=== PATIENT | male | born 1975 | race Caucasian/White ===

== ENCOUNTER → 2020-06-19 | Outpatient (CLI) | payer BC ==
--- NOTE | 2020-06-19 10:32 | XR ---
EXAMINATION TYPE: XR thoracic spine complete, 3 views DATE OF EXAM: 06/19/2020 Comparison: None Clinical History: 44-year-old male [id number],[id number] THOR PAIN, LBP Findings: Mild anterior wedging of approximately 7 minutes thoracic vertebral bodies. Accentuated cervical lord osis and upper thoracic kyphosis. There is leftward truncal shift that could be positional or due to muscle spasm. 12 rib bearing thoracic vertebral bodies. Bridging anterior endplate spondylosis midtho racic spine. Impression: Mild anterior wedging of approximately 7 midthoracic vertebral bodies. These are age indeterminate co mpression deformities in further clinical correlation is recommended. Accentuated upper thoracic kyph osis and accentuated cervical lordosis.
--- NOTE | 2020-06-19 10:33 | XR ---
EXAMINATION TYPE: XR lumbosacral spine min 4V DATE OF EXAM: 06/19/2020 Comparison: None Clinical History: 44-year-old male [id number],[id number] THOR PAIN, LBP Findings: Facet arthropathy mid to lower lumbar spine. Superior endplate deformity of L5. Trace grade 1 retroli sthesis L3-L4. Remaining alignment is maintained. There is superior endplate deformity with anterior wedging of T12 vertebral body. No pars interarticularis defect is identified. Impression: 1. Superior endplate deformity of T12 and L5 are age indeterminate compression fractures. This result s in mild anterior wedging at T12. Further clinical correlation recommended. 2. Some facet arthropathy lower lumbar spine. Degenerative grade 1 retrolisthesis at L3-L4.
== END | disposition home or self-care (01) ==
LOC: RADXRYALE 09:49
PROVIDERS: ATTEND Physician Assistant Medical
DX: M43.16 Spondylolisthesis, lumbar region (principal); M47.816 Spondylosis without myelopathy or radiculopathy, lumbar region; G95.29 Other cord compression; M40.294 Other kyphosis, thoracic region; M48.54XA Collapsed vertebra, not elsewhere classified, thoracic region, initial encounter for fracture; M43.8X5 Other specified deforming dorsopathies, thoracolumbar region
CPT/HCPCS: 72072; 72110